=== PATIENT | female | born 1995 | race Caucasian/White ===

== ENCOUNTER 2016-08-21 02:38 | Emergency (ER) | payer SELFPAY ==
[~2016-08-21] VITALS: Ht 157.5 cm; Wt 54.4 kg
[2016-08-21 03:43] VITALS: BP 121/77
[2016-08-21] MEDS ORDERED: methylPREDNISolone SOD SUCC 125 MG/2 ML VL IM ONE (04:00)
[2016-08-21] MEDS ORDERED: diphenhdrAMINE HCL 50 MG/1 ML VL IM ONE (04:00)
== END 2016-08-21 04:19 | disposition home or self-care (01) ==
LOC: ER 02:38
DX: T78.40XA Allergy, unspecified, initial encounter (principal)
CPT/HCPCS: 96372; 99284; J1200; J2930

== ENCOUNTER 2017-05-21 19:54 | Emergency (ER) | payer SELFPAY ==
[~2017-05-21] VITALS: Ht 154.9 cm; Wt 64.0 kg
[2017-05-21 20:02] VITALS: BP 121/68
== END 2017-05-21 23:30 | disposition left against medical advice (07) ==
LOC: ER 19:54
DX: N89.8 Other specified noninflammatory disorders of vagina (principal); Z53.21 Procedure and treatment not carried out due to patient leaving prior to being seen by health care provider
CPT/HCPCS: 76805

== ENCOUNTER 2017-12-09 05:15 | Emergency (ER) | payer MEDICAID ==
[~2017-12-09] VITALS: Ht 154.9 cm; Wt 63.5 kg
[2017-12-09 06:00] VITALS: BP 125/82
== END 2017-12-09 07:16 | disposition home or self-care (01) ==
LOC: ER 05:16
DX: J02.9 Acute pharyngitis, unspecified (principal)

== ENCOUNTER 2019-01-08 14:44 | Emergency (ER) | payer MEDICAID ==
[~2019-01-08] VITALS: Ht 157.5 cm; Wt 68.0 kg
[2019-01-08 15:54] VITALS: BP 120/63
== END 2019-01-08 16:39 | disposition home or self-care (01) ==
LOC: ER 14:44
DX: G56.03 Carpal tunnel syndrome, bilateral upper limbs (principal)
CPT/HCPCS: 29125

== ENCOUNTER 2022-06-09 05:02 | Emergency (ER) | payer MEDICAID ==
[~2022-06-09] VITALS: Ht 157.5 cm; Wt 78.6 kg
[2022-06-09 05:07] VITALS: BP 116/68
[2022-06-09] MEDS ORDERED: AMOX-277 PO (05:18)
[2022-06-09] MEDS ORDERED: ACET-1158 PO (05:18)
== END 2022-06-09 05:33 | disposition home or self-care (01) ==
LOC: ER 05:02
DX: H66.91 Otitis media, unspecified, right ear (principal)